=== PATIENT | female | born 1975 | race Caucasian/White ===

== ENCOUNTER 2021-11-22 18:29 | Emergency (ER) | payer OTHER, SELFPAY ==
[2021-11-22 18:52] VITALS: BP 110/65; PULSE 84; RESP 18; TEMP 36.4; O2SAT 100
--- NOTE | 2021-11-22 19:19 | ED.URI ---
HPI - URI/Sore Throat General Chief Complaint: Upper Respiratory Infection Stated Complaint: COVID Symptoms Source: patient and RN notes reviewed Mode of arrival: ambulatory History of Present Illness HPI Narrative: This is a 46-year-old female who presented to urgent care with complaints of shortness of breath and uncontrollable productive cough with yellow sputum. Patient notes that she tested positive for COVID last she retested on Saturday with results being negative. The patient denies CP, palpitation, extremity numbness, lightheadedness, dizziness, constipation, diarrhea, chills, or fever. Related Data Home Medications Medication Instructions Recorded Confirmed flash glucose sensor [FreeStyle 11/22/21 11/22/21 Divya 14 Day Sensor] insulin asp prt-insulin aspart See Rx Instructions .ROUTE .COMPLEX 11/22/21 11/22/21 [Novolog Mix 70-30 U-100 Insuln] insulin degludec [Tresiba U-100 35 unit SUBCUT DAILY 11/22/21 11/22/21 Insulin] levonorgestrel [Liletta] 1 device INTRAUTERINE ONCE 11/22/21 11/22/21 sertraline 100 mg PO DAILY 11/22/21 11/22/21 Allergies Allergy/AdvReac Type Severity Reaction Status Date / Time Iodinated Contrast Media AdvReac Severe Swelling Verified 11/22/21 19:01 of Lip/Tongue/Throat Review of Systems Review of Systems: A 14 organ system Review of Systems was performed and pertinent positives included in the HPI, otherwise remaining ROS is negative. Exam Narrative: GENERAL: This is a well-nourished, well-developed patient, in no apparent distress. HEAD: normocephalic, atraumatic. EYES: PERRL. Sclera clear/white. Vision is grossly intact. EARS: External ears normal, auditory canals clear and without drainage, TMs normal without perforation. Hearing grossly intact. NOSE: External nose normal with no obvious nasal discharge, nares without redness, no rhinorrhea. THROAT: Mucous membranes moist, posterior pharynx clear. NECK: Neck supple, non-tender without lymphadenopathy, masses or thyromegaly. CARDIOVASCULAR: Regular rate and rhythm without murmurs, gallops, or rubs. RESPIRATORY: Clear to auscultation. Breath sounds equal bilaterally. No wheezes, rales, or rhonchi. GASTROINTESTINAL: Abdomen soft, non-tender, nondistended. Bowel sounds are active. No hepato-splenomegaly, or palpable masses. No guarding. SKIN: warm, intact with no suspicious lesions or rash, good texture and turgor. NEURO: awake, alert, and oriented to person, place and time. There were no obvious focal neurologic abnormalities. Steady gait EXTREMITIES: Normal range of motion. No edema. No calf tenderness. Negative Homans sign bilaterally. BACK: Nontender without deformity or crepitance. No flank tenderness. Course Course Emergency Course: Patient will be treated for bronchitis she will be given albuterol along with dexamethasone and Tessalon Perles Level of Care: Express Care Visit Vital Signs Vital signs: Vital Signs Temperature 97.6 F 11/22/21 18:52 Pulse Rate 84 11/22/21 18:52 Respiratory Rate 18 11/22/21 18:52 Blood Pressure 110/65 11/22/21 18:52 Pulse Oximetry 100 11/22/21 18:52 Temperature 97.6 F 11/22/21 18:52 Pulse Rate 84 11/22/21 18:52 Respiratory Rate 18 11/22/21 18:52 Blood Pressure 110/65 11/22/21 18:52 Pulse Oximetry 100 11/22/21 18:52 MDM - URI/Sore Throat Differential Diagnosis Differential diagnosis: Likely upper respiratory infection, viral infection, bronchitis, pharyngitis and other (covid) Discharge Plan Discharge Clinical Impression: Bronchitis Patient Disposition: Home, Self-Care Condition: Stable Instructions: Antibiotic Form, Acute Bronchitis (ED) Additional Instructions: What are the symptoms of bronchitis? ? The most common symptoms of bronchitis are: ?A nagging cough that can last up to a few weeks ?Coughing up mucus that is clear, yellow, or green People with bronchitis do not usually get a fever. When should I call
== END 2021-11-22 19:18 | disposition home or self-care (01) ==
PROVIDERS: Emergency Provider Nurse Practitioner; PCP Hospitalist
DX: J40 Bronchitis, not specified as acute or chronic (principal); Z86.16 Personal history of COVID-19
CPT/HCPCS: 99213; G0463